=== PATIENT | female | born 1960 ===

== ENCOUNTER 2017-12-14 12:32 | Emergency (ER) | payer OTHER ==
[2017-12-14 13:04] VITALS: TEMP 97.9
--- NOTE | 2017-12-14 14:02 | C.PDOC ---
History Of Present Illness 57 yo female come in for evaluation of left knee pain gradually developed for past few days. Pt reports, pain is localized over posterior aspect and worse with ambulation. Otherwise, pt denies known trauma or injury, fever, chills, swelling, deformity, weakness, sensory or vascular deficits to Left leg. Ambulate to Ed for evaluation, not in any apparent distress. Time Seen by Provider: 12/14/17 13:38 Chief Complaint (Nursing): Lower Extremity Problem/Injury History Per: Patient Onset/Duration Of Symptoms: Gradual Past Medical History Reviewed: Historical Data, Nursing Documentation, Vital Signs Vital Signs: Last Vital Signs Temp 97.9 F 12/14/17 13:01 Pulse 75 12/14/17 13:01 Resp 16 12/14/17 13:01 BP 122/79 12/14/17 13:01 Pulse Ox 100 12/14/17 14:02 - Medical History PMH: Asthma Family History: States: No Known Family Hx - Social History Hx Alcohol Use: No Hx Substance Use: No - Immunization History Hx Tetanus Toxoid Vaccination: Yes Hx Influenza Vaccination: No Review Of Systems Except As Marked, All Systems Reviewed And Found Negative. Constitutional: Negative for: Fever, Chills ENT: Negative for: Throat Pain Musculoskeletal: Positive for: Other (Left knee pain) Skin: Negative for: Rash Neurological: Negative for: Weakness, Numbness Physical Exam - Physical Exam Appears: Well, Non-toxic, No Acute Distress Skin: Normal Color, Warm, No Rash, No Ecchymosis Head: Normacephalic Eye(s): bilateral: PERRL Extremity: Normal ROM (mild discomfort to left knee flexion), Tenderness ( POSTERIOR ASPECT LEFT KNEE), Capillary Refill (less than2 sec to left foot), No Deformity, No Swelling Neurological/Psych: Oriented x3, Normal Speech, Normal Motor, Normal Sensation, Normal Reflexes ED Course And Treatment O2 Sat by Pulse Oximetry: 100 Pulse Ox Interpretation: Normal - Other Rad Left knee X-Ray: Interpreted by Me, Viewed By Me Interpretation: (-) acute fx or dislocation Progress Note: On re-eval, pt is afebrile, hemodynamicaly stable. non-toxic. Ambulatory in ED. Left knee; exam c/w mild arthralgia. No deformity, no edema, no erythema, no neuorvascular deficits. Imaging review and appears normal. Brandon wrap applied to left knee. Pt advised. ref. to f/u with ortho in2 -3 days for re-eavl. return if any new changes. Disposition Counseled Patient/Family Regarding: Studies Performed, Diagnosis, Need For Followup, Rx Given - Disposition Referrals: Fanta Burger MD [Staff Provider] - Disposition: HOME/ ROUTINE Disposition Time: 14:02 Condition: STABLE Additional Instructions: BRANDON WRAP OR KNEE BRACE FOR 1 WEEK TAKE IBUPROFEN TWICE DAILY FOR 1 WEEK FOLLOW UP WITH PMD, ORTHOPEDIST IN 2-3 DAYS FOR RE-EVALUATION, MRI OF LEFT KNEE NEED AND FURTHER TREATMENT. RETURN TO ED IF ANY NEW CHANGES. Prescriptions: Ibuprofen [Motrin Tab] 600 mg PO Q6 #20 tab Instructions: Knee Pain (ED) Forms: [employer] (Turkmen) - Clinical Impression Clinical Impression: Arthralgia of knee
--- NOTE | 2017-12-14 14:05 | RAD ---
PROCEDURE: Left Knee Radiographs. HISTORY: Pain. COMPARISON: None. FINDINGS: BONES: No acute fracture. Incidental finding(s): Exostosis proximal left tibia, benign finding. Calcification of the quadriceps tendon and normal variant. JOINTS: Normal. No osteoarthritis. JOINT EFFUSION: None. OTHER FINDINGS: Calcification within the lateral collateral ligament. IMPRESSION: No acute findings related to/accounting for the clinical presentation. Additional benign and/or incidental findings described above.
[2017-12-14 14:48] VITALS: BP 120/70; PULSE 72; RESP 20; O2SAT 99
== END 2017-12-14 14:40 | disposition home or self-care (01) ==
LOC: C.ER 12:32
DX: M25.562 Pain in left knee (principal)

== ENCOUNTER 2018-04-01 07:08 | Emergency (ER) | payer OTHER ==
--- NOTE | 2018-04-01 08:07 | C.PDOC ---
History Of Present Illness Patient presents to ED with c/o right lower back pain described as "sharp" for 3 days worse with movement. Patient reports she has tried heat pads and Diclofenac with no relief. Patient denies trauma, numbness, weakness, bowel/ bladder incontinence or any other complaints at this time. Time Seen by Provider: 04/01/18 07:37 Chief Complaint (Nursing): Back Pain History Per: Patient History/Exam Limitations: no limitations Onset/Duration Of Symptoms: Days Current Symptoms Are (Timing): Still Present Quality Of Discomfort: Sharp Past Medical History Reviewed: Historical Data, Nursing Documentation, Vital Signs Vital Signs: Last Vital Signs Temp 97.9 F 04/01/18 10:10 Pulse 82 04/01/18 10:10 Resp 18 04/01/18 10:10 BP 120/80 04/01/18 10:10 Pulse Ox 99 04/01/18 10:10 - Medical History PMH: Asthma Surgical History: Tonsillectomy Family History: States: No Known Family Hx - Social History Hx Alcohol Use: No Hx Substance Use: No - Immunization History Hx Tetanus Toxoid Vaccination: Yes Hx Influenza Vaccination: No Review Of Systems Constitutional: Negative for: Fever, Chills Gastrointestinal: Negative for: Nausea, Vomiting, Abdominal Pain Genitourinary: Negative for: Dysuria, Incontinence Musculoskeletal: Positive for: Back Pain Physical Exam - Physical Exam Appears: Non-toxic, No Acute Distress Skin: Warm, Dry, No Rash Head: Atraumatic, Normacephalic Oral Mucosa: Moist Neck: Normal ROM, Supple Cardiovascular: Rhythm Regular Respiratory: Normal Breath Sounds, No Rales, No Rhonchi, No Wheezing Gastrointestinal/Abdominal: Soft, No Tenderness, No Guarding, No Rebound Back: No CVA Tenderness, Other (Right paralumbar tenderness) Extremity: Normal ROM, Capillary Refill (<2 seconds) Neurological/Psych: Oriented x3, Normal Speech, Normal Cognition, Normal Motor, Normal Sensation ED Course And Treatment O2 Sat by Pulse Oximetry: 98 (RA) Pulse Ox Interpretation: Normal Medical Decision Making Medical Decision Making: Plan: Decadron, Flexeril, Toradol and Lidoderm patch administered On re-exam, the patient reports improvement of symptoms. Lungs are CTA, heart is RRR, abdomen is soft, non-tender and the patient is tolerating PO well. ambulatory in the ED with steady gait. Follow up with the medical doctor within 1-2 days. Return if worsened. Disposition - Disposition Referrals: aFnta Burger MD [Staff Provider] - Disposition: HOME/ ROUTINE Disposition Time: 09:57 Condition: GOOD Additional Instructions: Follow up with the medical doctor within 1-2 days. Return if worsened. Prescriptions: Cyclobenzaprine [Flexeril] 5 mg PO TID #21 tab Lidocaine 5% [Lidoderm] 1 each TP DAILY #10 patch Naproxen [Naprosyn] 500 mg PO BID #20 tab Instructions: Low Back Pain in Adults Forms: [employer] (Greek), Work Excuse - Clinical Impression Clinical Impression: Low back pain - PA / UND[employer] / Resident Statement MD/DO has reviewed & agrees with the documentation as recorded. - Scribe Statement The provider has reviewed the documentation as recorded by the Lawsonibpayam Yang All medical record entries made by the Juan Carlos were at my direction and personally dictated by me. I have reviewed the chart and agree that the record accurately reflects my personal performance of the history, physical exam, medical decision making, and the department course for this patient. I have also personally directed, reviewed, and agree with the discharge instructions and disposition.
[2018-04-01] MEDS ORDERED: Lidocaine 5% Patch TD STA (08:36)
[2018-04-01] MEDS ORDERED: Dexamethasone 4 mg/1 ml IM STA (08:37)
[2018-04-01] MEDS ORDERED: Lidocaine 5% Patch TD ONE (08:57)
[2018-04-01] MEDS ORDERED: Dexamethasone 4 mg/1 ml ONE (08:57)
[2018-04-01 10:11] VITALS: BP 120/80; PULSE 82; RESP 18; TEMP 97.9
[2018-04-01 18:30] VITALS: O2SAT 98
== END 2018-04-01 10:11 | disposition home or self-care (01) ==
LOC: C.ER 07:08
DX: M54.5 Low back pain (principal)
CPT/HCPCS: 96372; 99284; J1100; J1885

== ENCOUNTER 2018-06-30 05:55 | Day surgery (SDC) | payer OTHER ==
[2018-06-25 08:29] VITALS: BMI 28.0
[2018-06-30] MEDS ORDERED: ceFAZolin IV 1 gm in Dextrose 1 GM/50 ML BAG IVPB ONE (07:34)
[2018-06-30] MEDS ORDERED: Lidocaine 2% MPF (5 ml) Inj ONE (07:35)
[2018-06-30] MEDS ORDERED: Dexamethasone 4 mg/1 ml ONE (07:37)
[2018-06-30] MEDS: Bupivacaine 0.25% 20 ML INJ IJ ONE ×2 (07:43→10:20)
[2018-06-30] MEDS ORDERED: Propofol 10 mg/ml Inj (20 ML) ONE ×3 (07:44→09:52)
[2018-06-30] MEDS ORDERED: Midazolam 2 MG/2 ML VIAL ONE (07:44)
[2018-06-30] MEDS ORDERED: Bacitracin 500 Units/gm Oint Foilpak UD ONE (10:20)
[2018-06-30] MEDS ORDERED: Oxycodone/Acetaminophen 5/325 mg Tab PO PRN ×2 (10:38)
[2018-06-30] MEDS ORDERED: HYDROmorphone 0.5 mg/0.5 ml ISec IVP PRN (10:43)
[2018-06-30] MEDS ORDERED: Lactated Ringer's 1,000 ML IV SCH (10:45)
[2018-06-30 11:47] VITALS: RESP 16; TEMP 97.6; O2SAT 98
--- NOTE | 2018-06-30 11:52 | RAD ---
Date of service: 06/30/2018 PROCEDURE: Left Foot Radiographs. HISTORY: s/p left foot surgery COMPARISON: None. FINDINGS: BONES: Status post bunionectomy and osteotomy 1st metatarsal diaphysis. Two screws traverse the osteotomy site of the 1st metatarsal. There is no other osseous abnormality appreciated. JOINTS: Normal. SOFT TISSUES: Normal. OTHER FINDINGS: None. IMPRESSION: Status post bunionectomy and osteotomy 1st metatarsal.
--- NOTE | 2018-06-30 12:17 | PCM.SURG1 ---
Surgeon's Initial Post Op Note - Surgeon's Notes Surgeon: Dr. Oakley, DPM Corporate Development Officer: Noreen Sierra, PRG-3; Noreen Dawson, PGY-2 Type of Anesthesia: IV Sedation, Local (20cc of 1:1 mix of 2% lidociane to 0.25 % marcaine plain) Anesthesia Administered By: Dr. 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 M: Synthes 2.7 x 18 mm fully threaded cortical screw; 3.5 x 16mm fully threaded cortical screw; 2-0 vicryl, 3-0 vycryl, 4-0 vicryl, 4- 0 nylon Post-Operative Diagnosis: Same as pre-operative Operation Performed: Left closing base wedge first metatarsal osteotomy with internal fixation Specimen/Specimens Removed: Left 1st metatarsal bone Estimated Blood Loss: EBL {In ML}: 6 Blood Products Given: N/A Drains Used: No Drains Post-Op Condition: Good Date of Surgery/Procedure: 06/30/18 Time of Surgery/Procedure: 10:30
[2018-06-30 13:20] VITALS: BP 118/64; PULSE 72
--- NOTE | 2018-07-05 06:22 | OP ---
Copied To: Bipin Sierra DPM Attending MD: Wilber Oakley DPM PROCEDURE DATE: 06/30/2018 PRIMARY SURGEON: Wilber Oakley DPM WORLD GEOGRAPHY TEACHER: Wilber Randall DPM ASSISTING RESIDENTS: 1. Bipin Sierra, PGY-3. 2. Shala Dawson, PGY-2. ANESTHESIOLOGIST: Raghu Bennett DO ANESTHESIA TYPE: IV sedation with local. PREOPERATIVE DIAGNOSIS: Left foot metatarsus primus adductus/bunion deformity. POSTOPERATIVE DIAGNOSIS: Left foot metatarsus primus adductus/bunion deformity. PROCEDURE PERFORMED: 1) Left first metatarsal closing base wedge osteotomy with internal fixation. 2) Fluoroscopy SPECIMEN: Left first metatarsal bone. INDICATION: The patient is a 58-year-old female with the above stated diagnosis. The patient has exhausted all conservative treatment options to this point, and is now in need of surgical intervention. The patient signed a surgical consent after careful explanation of risks, benefits, complications, and potential alternatives to the proposed surgical procedures. No guarantees were either given or implied. All patient's questions were answered to her satisfaction. PREPARATION: The patient's n.p.o. status was confirmed prior to bringing the patient to the operating room. The patient was brought into the operating room and placed on the operating room table in a supine position. A well-padded pneumatic tourniquet was applied in a supramalleolar position to the patient's left ankle and set to 250 mmHg to be inserted once the procedures began. Once IV sedation was confirmed to have been achieved, the patient received a total of 20 mL of 1:1 mixture of 0.25% Marcaine plain to 2% lidocaine plain in a local block type fashion to left foot. Once local anesthetic was confirmed to have been achieved, the patient's left foot was then prepped and draped in the usual sterile manner. Foot was exsanguinated, tourniquet was inflated and the procedure was began. DESCRIPTION OF PROCEDURE: Left first metatarsal osteotomy/closing base wedge osteotomy with internal fixation. Attention was then directed to the dorsal medial aspect of the patient's first metatarsal in the left foot where an approximately 8 cm linear longitudinal incision was made medial and parallel to the tendon of the extensor hallucis longus, involving the contour of the deformity, extending from the first metatarsal tarsal joint to the base of the proximal hallux using #15 blade. This incision was extended down to the subcutaneous tissues using a combination of sharp and blunt dissection which have been taken to identify, avoid, and retract all vital neurovascular structures. All bleeders were cauterized and ligated as needed and encountered. At this time, extensor hallucis longus tendon was retracted medially, and using blunt dissection, first interspace was dissected down into level of fibular sesamoid apparatus. Fibular sesamoid suspensory ligaments were then resected and attachments of the oblique and transverse head of the adductor hallucis muscle belly were refracted free from the sesamoid first metatarsal head and proximal phalanx space, realigning and improving fibular sesamoid position when evaluated under fluoroscopy. Next , an inverted L-type capsulotomy was performed overlying the dorsal-medial aspect of the first metatarsophalangeal joint. Periosteal and capsular structures were then carefully dissected free of the osseous attachment and retracted medial and laterally, but fully exposing the head of the first metatarsal to the operative field. Next, utilizing an oscillating saw, the dorsal and medial prominences were resected and passed through the operative field. All rough edges were then smoothed down with a bone rasp. First metatarsophalangeal joint cartilaginous surfaces were identified and found to be adequate with no degenerative joint disease appreciated. At this time, attention was then directed to the base and midshaft portion of the first metatarsal portion. Under fluoroscopic evaluation, first metatarsophalangeal joint contour was identified. From joints, 1.5 cm was measured distally, and this point was selected to be the oblique apex of the osteotomy. It was noted that this was in line with the medial 1/5th of the diaphyseal region of the first metatarsal. At this time, a guidewire perpendicular to the weightbearing surface, simulated using sterile loading apparatus. K-wire was driven from dorsal to plantar surface of first metatarsal in the medial 1/5th of the first metatarsal. Fluoroscopic guidance was used to evaluate this position, and it was found that, this K-wire was indeed perpendicular to weightbearing surface of the first metatarsal. With this K-wire serving as apex of osteotomy, an approximately 40-degree osteotomy with laterally based wedge was drawn out, and utilizing an oscillating saw, osteotomy was completed in line with the first metatarsal with care to avoid excursion of saw to avoid excess resection and violation of medial cortex. Resected bone wedge then passed from the operative field and placed in sterile saline to be potentially be used as autolagous graft as needed for our case. At this time, with medial cortex still intact, osteotomy margins were opposed, at this time medial cortex broke though osteotomy was well opposed. Using combination of temporary K-wire fixation, oriented from medial cortex to lateral cortex. Two 0.045 inch K-wire were then driven to serve as temporary fixation along with the bone reduction forceps. Osteotomy was held in place and found to be adequate upon fluoroscopic evaluation. At this time, following standard AO principles and technique, a Synthes 3.5 mm cortical screw was driven from midshaft region on the medial cortex exiting laterally, perpendicular with long axis of first metatarsal. Next, on evaluating cortical surface, a Synthes 2.7 fully threaded cortical screw was driven from medial cortical wall to lateral cortical wall, perpendicular to the osteotomy site. The area was evaluated and found to be adequate. K-wires were removed and fifth metatarsophalangeal joint was then inspected and was found to be adequate. Osteotomy was stably fixated. Surgical site was then flushed with copious amounts of sterile saline, 1 mL of Synthes DBX was introduced to fill in approximated portions of osteotomy site to further complete opposition and fill any bony deficits. Surgical site was then evaluated and found to be adequate. Under fluoroscopic evaluation, it was found that intermetatarsal angle was adequately reduced and hallux abductus valgus was also reduced at this time. Periosteal tissues were reapproximated using a combination of 2-0 and 3-0 Vicryl along full length of surgical incision. Skin was reapproximated using 4-0 nylon. The patient at this time received 10 mL of 0.5% Marcaine plain in a local block type fashion along the first ray. The patient received 2 mL of dexamethasone 4 mg/mL at the level of the first metatarsophalangeal joint. Surgical site was then dressed with Bacitracin, Xeroform, 4x4 gauze, [place], Kerlix, and DOMINICK. The patient was placed in a posterior splint and seemed nonweightbearing postoperatively. POSTOPERATIVE CONDITION: The patient tolerated the anesthesia and procedure well, and was escorted to the recovery room with vital signs are stable and neurovascular status intact to the patient's left foot. The patient had no complaints. No complications. The patient will follow up with Dr. Oakley in his office on outpatient basis. Bipin Sierra DPM Wilber Oakley DPM IRWIN
== END 2018-06-30 13:15 | disposition home or self-care (01) ==
LOC: C.SDS 05:55
PROVIDERS: ATTEND Podiatrist Foot & Ankle Surgery
DX: M20.11 Hallux valgus (acquired), right foot (principal)
CPT/HCPCS: 28306; 73620; 88304; 88311; J0690; J1100; J2250; J2704; J3010